=== PATIENT | male | born 1960 | race Caucasian/White ===

== ENCOUNTER 2017-11-11 13:32 | Emergency (ER) | payer MEDICAID ==
[~2017-11-11] VITALS: Ht 185.4 cm; Wt 96.5 kg
[~2017-11-11 13:32] MED LIST: ASPI-611 PO; BACL20TA PO; DOCU250C87 PO; HYDR-3972 PO; MELO-100 PO; TRAZ-143 PO; ZOL50T PO
[2017-11-11 14:24] LABS: BASOPHILS % (AUTO) 0.1 % (0-1); EOSINOPHILS # (AUTO) 0.2 X10'3 (0-0.9); EOSINOPHILS % (AUTO) 2.4 % (0-6); HEMATOCRIT 39.9 % (42.0-52.0); HEMOGLOBIN 13.9 g/dl (14.0-17.9); LYMPHOCYTES # (AUTO) 0.6 X10'3 (1.1-4.8); LYMPHOCYTES % (AUTO) 8.3 % (21-51); MEAN CORPUSCULAR HEMOGLOBIN 32.6 PG (27.0-31.0); MEAN CORPUSCULAR HGB CONC 34.9 % (33.0-36.5); MEAN CORPUSCULAR VOLUME 93.3 FL (78-98); MEAN PLATELET VOLUME 8.2 FL (7.4-10.4); MONOCYTES # (AUTO) 0.3 X10'3 (0-0.9); MONOCYTES % (AUTO) 3.6 % (2-12); NEUTROPHILS # (AUTO) 6.3 X10'3 (1.8-7.7); NEUTROPHILS % (AUTO) 85.6 % (42-75); PLATELET COUNT 252 X10'3 (140-440); RED BLOOD COUNT 4.27 X10'6 (4.70-6.10); RED CELL DISTRIBUTION WIDTH 13.9 % (11.5-14.5); WHITE BLOOD COUNT 7.3 X10'3 (4.5-11.0)
[2017-11-11 14:46] LABS: ALANINE AMINOTRANSFERASE 25 U/L (12-78); ALBUMIN 3.8 G/DL (3.4-5.0); ALBUMIN/GLOBULIN RATIO 1.1 (1.1-1.5); ALKALINE PHOSPHATASE 59 IU/L (46-116); ANION GAP 11 (8-16); ASPARTATE AMINO TRANSFERASE 16 U/L (10-37); BILIRUBIN,TOTAL 0.8 MG/DL (0.1-1.0); BLOOD UREA NITROGEN 19 MG/DL (7-18); BUN/CREATININE RATIO 19.6 (5.4-32.0); CALCIUM 8.6 MG/DL (8.5-10.1); CHLORIDE 107 MMOL/L (99-107); CREATININE 0.97 MG/DL (0.60-1.10); GLUCOSE 100 MG/DL (70-104); LIPASE 122 U/L (73-393); POTASSIUM 3.8 MMOL/L (3.5-5.1); SODIUM 142 MMOL/L (135-145); TOTAL CARBON DIOXIDE 24.2 MMOL/L (24-32); TOTAL PROTEIN 7.4 G/DL (6.4-8.2); eGFR 79 ML/MIN
[2017-11-11] MEDS ORDERED: ONDA4TAB6 PO (15:11)
[2017-11-11] MEDS ORDERED: ONDA8TAB6 PO (15:11)
[2017-11-11 15:19] VITALS: BP 111/65
== END 2017-11-11 15:27 | disposition home or self-care (01) ==
LOC: ER 13:33
DX: D64.9 Anemia, unspecified (principal); R11.2 Nausea with vomiting, unspecified; R19.7 Diarrhea, unspecified; G89.29 Other chronic pain; Z86.718 Personal history of other venous thrombosis and embolism; Z79.82 Long term (current) use of aspirin; Z79.899 Other long term (current) drug therapy
CPT/HCPCS: 36415; 80053; 83690; 85025; 99284

== ENCOUNTER 2019-07-26 10:29 | Emergency (ER) | payer MEDICAID ==
[~2019-07-26] VITALS: Ht 185.4 cm; Wt 100.0 kg
[~2019-07-26 10:29] MED LIST changes: +ONDA4TAB6 PO; +SERT-153 PO; -TRAZ-143 PO; +TRAZ-251 PO; -ZOL50T PO
[2019-07-26 11:17] LABS: BASOPHILS # (AUTO) 0.1 X10'3 (0-0.2); BASOPHILS % (AUTO) 0.4 % (0-1); EOSINOPHILS % (AUTO) 0.1 % (0-6); HEMATOCRIT 39.4 % (42.0-52.0); HEMOGLOBIN 13.5 g/dl (14.0-17.9); LYMPHOCYTES # (AUTO) 0.7 X10'3 (1.1-4.8); LYMPHOCYTES % (AUTO) 4.6 % (21-51); MEAN CORPUSCULAR HEMOGLOBIN 33.6 PG (27.0-31.0); MEAN CORPUSCULAR HGB CONC 34.2 g/dL (33.0-36.5); MEAN CORPUSCULAR VOLUME 98.3 FL (78-98); MEAN PLATELET VOLUME 8.3 FL (7.4-10.4); MONOCYTES # (AUTO) 1.3 X10'3 (0-0.9); MONOCYTES % (AUTO) 7.8 % (2-12); NEUTROPHILS % (AUTO) 87.1 % (42-75); PLATELET COUNT 216 X10'3 (140-440); RED BLOOD COUNT 4.01 X10'6 (4.70-6.10); WHITE BLOOD COUNT 16.1 X10'3 (4.5-11.0)
[2019-07-26 11:28] LABS: ALANINE AMINOTRANSFERASE 84 U/L (12-78); ALBUMIN 3.3 G/DL (3.4-5.0); ALBUMIN/GLOBULIN RATIO 0.8 (1.1-1.5); ALKALINE PHOSPHATASE 91 IU/L (46-116); ANION GAP 7 (8-16); ASPARTATE AMINO TRANSFERASE 77 U/L (10-37); BILIRUBIN,TOTAL 0.6 MG/DL (0.1-1.0); BLOOD UREA NITROGEN 14 MG/DL (7-18); BUN/CREATININE RATIO 13.9 (5.4-32.0); CALCIUM 9.2 MG/DL (8.5-10.1); CHLORIDE 102 MMOL/L (99-107); CREATININE 1.01 MG/DL (0.60-1.10); GLUCOSE 119 MG/DL (70-104); POTASSIUM 3.4 MMOL/L (3.5-5.1); SODIUM 138 MMOL/L (135-145); TOTAL CARBON DIOXIDE 28.9 MMOL/L (24-32); TOTAL PROTEIN 7.3 G/DL (6.4-8.2); eGFR 75 ML/MIN
[2019-07-26 11:50] LABS: TOTAL CELLS COUNTED 100
[2019-07-26 11:51] LABS: PLATELET ESTIMATE NORMAL; TOXIC VACUOLATION 1+
[2019-07-26] MEDS ORDERED: acetaminophen 325mg tablet PO STA (12:08)
[2019-07-26] MEDS ORDERED: normal saline 1000ML IV soln IV ONE (12:10)
[2019-07-26] MEDS ORDERED: ketorolac trometh. 30mg/ml inj. IV ONE (12:10)
[2019-07-26 13:36] LABS: CLARITY,URINE CLEAR (Clear); COLOR,URINE YELLOW (Yellow); GLUCOSE, URINE NEGATIVE (Neg); KETONES,URINE NEGATIVE (Neg); LEUKOCYTE ESTERASE ,URINE NEGATIVE (Neg); NITRITES, URINE NEGATIVE (Neg); OCCULT BLOOD,URINE NEGATIVE (Neg); PROTEIN,URINE TRACE mg/dl (Neg)
[2019-07-26 13:41] LABS: UA COLLECTION TYPE URINAL
[2019-07-26 13:42] LABS: RBC,URINE 0-2 /HPF (0-2); WBC,URINE 0-4 /HPF (0-4)
[2019-07-26 13:43] LABS: BACTERIA,URINE FEW /HPF (Neg); MUCUS STRANDS NONE SEEN /LPF (Neg); SQUAMOUS EPITHELIAL CELL,UR FEW /LPF (FEW)
[2019-07-26] MEDS ORDERED: AMOX-422 PO (13:49)
[2019-07-26 14:05] VITALS: BP 112/80
== END 2019-07-26 14:08 | disposition home or self-care (01) ==
LOC: ER 10:29
DX: J01.10 Acute frontal sinusitis, unspecified (principal); R42 Dizziness and giddiness; R06.02 Shortness of breath; R53.1 Weakness; R51 Headache; R11.0 Nausea; G89.29 Other chronic pain; I10 Essential (primary) hypertension; F32.9 Major depressive disorder, single episode, unspecified; F17.200 Nicotine dependence, unspecified, uncomplicated; Z79.2 Long term (current) use of antibiotics; Z79.1 Long term (current) use of non-steroidal anti-inflammatories (NSAID); Z79.899 Other long term (current) drug therapy; Z86.718 Personal history of other venous thrombosis and embolism; Z98.890 Other specified postprocedural states
CPT/HCPCS: 36415; 71045; 80053; 81001; 83605; 84145; 84484; 85025; 87040; 87502; 87503; 93005; 96361; 96374; 99284; J1885; J7030

== ENCOUNTER → 2023-07-10 | Emergency (ER) | payer MEDICAID ==
[~2023-07-10] VITALS: Ht 185.4 cm; Wt 113.4 kg
[~2023-07-10] MED LIST changes: +CEPH500C2 PO; +IBUP-1984 PO; +TETanus/Pertussis (Acell)/Diphther VAC/PF (Tdap-Adult) 0.5ml syringe IMVAC ONE
[2023-07-10 18:52] VITALS: BP 144/80; PULSE 63; RESP 16; TEMP 98.2; O2SAT 99
== END | disposition home or self-care (01) ==
LOC: ER 17:38
DX: S81.812A Laceration without foreign body, left lower leg, initial encounter (principal); I10 Essential (primary) hypertension; G89.29 Other chronic pain; F32.9 Major depressive disorder, single episode, unspecified; Z86.718 Personal history of other venous thrombosis and embolism; Z98.890 Other specified postprocedural states; Z79.82 Long term (current) use of aspirin; Z79.899 Other long term (current) drug therapy; W01.0XXA Fall on same level from slipping, tripping and stumbling without subsequent striking against object, initial encounter; Y93.89 Activity, other specified; Y92.89 Other specified places as the place of occurrence of the external cause; Y99.8 Other external cause status
CPT/HCPCS: 90471; 90715; 99283; J7030

== ENCOUNTER 2024-07-14 08:28 | Outpatient (CLI) | payer MEDICAID ==
[~2024-07-14 08:28] MED LIST changes: -CEPH500C2 PO; -IBUP-1984 PO; -TETanus/Pertussis (Acell)/Diphther VAC/PF (Tdap-Adult) 0.5ml syringe IMVAC ONE
== END 2024-07-14 23:59 | disposition home or self-care (01) ==
LOC: CARD DIAG 08:28
PROVIDERS: ATTEND Student in an Organized Health Care Education/Training Program
DX: I08.0 Rheumatic disorders of both mitral and aortic valves (principal); R01.1 Cardiac murmur, unspecified
CPT/HCPCS: 93306

== ENCOUNTER 2025-01-05 15:02 | Emergency (ER) | payer MEDICAID ==
[~2025-01-05] VITALS: Ht 185.4 cm; Wt 104.5 kg
[2025-01-05 15:17] VITALS: BP 118/52; PULSE 58; RESP 17; O2SAT 96
--- NOTE | 2025-01-05 15:42 | Physician Documentation ---
History of Present Illness ~ Chief Complaint: Eye Pain Stated Complaint: L EYE PAIN Time Seen by MD: 15:33 Primary Medical Doctor: PATIENT IS UNSURE OF NAME HPI 4-year-old male presents to the ED with a complaint of left eye pain. States he thinks he may have gotten something in his left eye yesterday after working with metal.. States he feels after sterile something in there. Denies any changes in vision however reports pain. Day of Onset: January 05, 2025 Medication Reconciliation Allergies: Coded Allergies: No Known Allergies (Unverified , 07/10/23) Scheduled Aspirin (Aspir 81), 1 TABLET PO DAILY, (Reported) Baclofen (Baclofen), 1 TABLET PO BID, (Reported) Docusate Sodium (Dok), 250 MG PO HS, (Reported) Erythromycin Base Opth. Ointment* (Erythromycin Opth. Ointment*), 1 APPLIC LEFTEYE Q4HWA Meloxicam* (Meloxicam*), 1 TABLET PO DAILY, (Reported) Ondansetron Hcl (Zofran), 1 TAB PO Q8H Sertraline HCl (Sertraline HCl), 1 TABLET PO DAILY, (Reported) Trazodone HCl (Trazodone HCl), 1 TABLET PO HS, (Reported) Miscellaneous Medications Hydrocodone Bit/Acetaminophen (Hydrocodon-Acetaminophn 10-325 tablet), 1 EACH PO, (Reported) Past Medical History Past Medical History: Hypertension, Chronic Back Pain, Deep Vein Thrombosis, Depression Past Surgical History: noncontributory, orthopedic surgeries, other Alcohol Use: Rarely Drug Use: none Lives In: Home Review of Systems All Other Systems at this time: Reviewed and Negative ROS As stated above in the HPI, otherwise all systems are reviewed and negative. Physical Exam Vital Signs: Temperature: 97.8, Heart Rate: 58, Respiratory Rate: 17, BP: 118/52, Pulse Oximetry: 96, Weight: 104.550 Oxygen Flow Rate: 0 Physical Exam General: Alert, no apparent distress. HEENT: PERRL, EOMI, no injection, moist mucous membranes. sclera injected Cardiovascular: Regular rate and rhythm, no murmurs. Gastrointestinal: Soft, nontender, nondistended. Bowels sounds present. Neurologic: Oriented x4. Psychiatric: Normal mood and affect. Progress Results/Orders Results/Orders Completed Orders - ZAKI SOUZA PANEL INSTALLER Proparacaine Ophth Solution (Alcaine Oph (01/05/25 15:35) Vital Signs 01/05/25 15:17 Temp 97.8 Pulse 58 Resp 17 B/P (MAP) 118/52 Pulse Ox 96 O2 Flow Rate 0 Medical Decision Making Findings Infusing proparacaine in the left eye utilize the Wood's lamp along with fluorescein to attempt to visualize any corneal abrasions. Could not of visualized any rust rings, foreign bodies or corneal abrasions. Going to prescribe antibiotic ointment Departure Disposition: HOME / SELF CARE / HOMELESS Impression: Primary Impression: Corneal abrasion Condition: Stable Discharge Instructions: Corneal Abrasion Referrals: NO PRIMARY CARE PROVIDER (PCP) Prescriptions Erythromycin Base Opth. Ointment* (Erythromycin Opth. Ointment*) 1 Gm Tube 1 APPLIC LEFTEYE Q4HWA, #1 EACH Prov: ZAKI SOUZA PANEL INSTALLER 01/05/25 Education Educated: Patient Educated regarding: diagnosis Signature Scribe Signature: g Attestation: The note accurately reflects work and decisions made by me.Zaki Souza - PANEL INSTALLER 01/05/25 16:03 ZAKI SOUZA NP January 05, 2025 15:42
[2025-01-05] MEDS: proparacaine 0.5% ophthalmic drops 15ml EACHEYE ONE (15:55)
[2025-01-05] MEDS ORDERED: ERYT1OIN6 LEFTEYE (16:02)
[2025-01-05 16:17] VITALS: TEMP 97.8
== END 2025-01-05 16:19 | disposition home or self-care (01) ==
LOC: ER 15:03
DX: S05.02XA Injury of conjunctiva and corneal abrasion without foreign body, left eye, initial encounter (principal); I10 Essential (primary) hypertension; F32.A Depression, unspecified; Z86.718 Personal history of other venous thrombosis and embolism; Z79.899 Other long term (current) drug therapy; Z79.82 Long term (current) use of aspirin; X58.XXXA Exposure to other specified factors, initial encounter; Y93.89 Activity, other specified; Y92.89 Other specified places as the place of occurrence of the external cause; Y99.8 Other external cause status
CPT/HCPCS: 99283